=== PATIENT | male | born 1980 | race Two or more races ===

== ENCOUNTER 2021-09-17 16:08 | Outpatient (CLI) | payer OTHER ==
[2021-09-17 17:07] VITALS: BP 123/78
--- NOTE | 2021-09-17 17:07 | SLEEP CARE CONSULTATION ---
Information from patient questionnaire entered by David Cardenas MA. I have reviewed and concur with the information entered by David Cardenas MA. This document represents the service I personally performed and the decisions made by me, Hali Ching ARNP. History of Present Illness Service Date and Time: 09/17/2021 1608 Reason for Visit: New patient (ONSET 06/2011, NO PRIORS,) Chief Complaint: reports: Unrefreshed sleep, Snoring, Excessive daytime sleepine ss, Observed pauses in breathing, Frequent awakenings at night Date of Onset: 6-7 YEARS Usual bedtime: BED 1000 ASLEEP BY 1200 - 0100 Time it takes to fall asleep: 3 HOURS Snores at night: Yes Observed to quit breathing while asleep: Yes Sleeps alone due to snoring: No Number of times waking at night: 3-4 Reasons for waking at night: reports: Snoring, Gasping for air, Other (unknown reasons; arms are "asleep" and hurt; wakes up with cotton mouth) Toss, Turn, or Twitch while sleeping: Yes Recalls having dreams: Yes Usually gets out of bed at: 2739-0020 Feels refreshed in the morning: No Morning headache: Yes (1-2 times a week, resolves after few hours; has bruxism) Sleepy or fatigued during the day: Yes Ever fallen asleep while driving: Yes (drowsy driving; fell asleep once but no accident) Takes day naps: Yes (daily for about 15-45 minutes) Dreams during day naps: No Prior sleep studies: No Additional HPI information: I had the pleasure of seeing KIMBERLEY LOMBARDI today regarding the possibility of him having a sleep disorder. His current complaints are unrefreshed sleep, snoring, excessive daytime sleepiness, observed pauses in breathing and frequent night awakenings. He will lay down about 10 PM but has general anxiety and has ruminating thoughts that keep him awake. He has tried Melatonin at night which did help him go to sleep quicker but not feel more rested in the mornings. He will wake up 3-4 times a night. He tries to avoid looking at watch or clock because this will cause anxiety. He will just go to bathroom or change position and then go back to sleep which takes about 20-30 minutes. - Parasomnia Symptoms Ever been unable to move upon waking from sleep: No Walks in sleep: No Talks in sleep: Yes (per ) Ever acted out dreams in sleep: No Ever felt weak in the knees when startled or emotional: No Bothered by creepy, crawly, restless sensations in legs: Yes (not often; legs are squirmy, got to shake them out; 2-3 times a month night) Problems with memory or concentration: Yes (both) Subjective Initial [place] Sleepiness Scale score: 21 (08/2021) Past Medical History Past Medical History: reports: Anxiety, Asthma, Depression Social History The patient's occupation is a RE. Patient is and lives in [place]. Have you smoked in the past 12 months: No Cigarettes per day (20/pack): 5 (mainly during deployments; quit on [facility]) Quit date: 2015 Alcohol use: Yes Alcohol amount and frequency: 4 X WEEKLY Caffeine use: Yes Caffeine amount and frequency: 3 X DAILY Family History Family history of sleep disordered breathing: Yes Family Hx Sleep Apnea: Mother: Snoring, Sleep apnea - Untreated, Sibling: Snoring, Sleep apnea - Treated, Grandparent: Snoring, Sleep apnea - Untreated Allergies and Home Medications Drug allergies reviewed: Yes (Ibuprofen, facial swelling and hives) Home medication list reviewed: Yes Allergy and home medication list: Singular 10 mg daily Duloxetine 20 mg Advair Diskus 500-50 BID ProAir HFA, prn Hydroxyzine 20 mg, prn Review of Systems Weight gain over past 5 years: 25 pounds Cardiovascular: reports: high blood pressure Respiratory: reports: shortness of breath, wheeze Gastrointestinal: reports: nausea Urinary: reports: impotence Neurological: reports: headaches, head trauma (concussion, lost 1 day of memory) Psychiatric: reports: anxiety, depression Ear/Nose/Throat: reports: nasal congestion, dry mouth/throat, wisdom teeth removed, other (Tinnitus). denies: tonsillectomy Endocrine: reports: sluggishness Musculoskeletal: reports: joint pain, neck pain, back pain Immunologic: reports: allergies to food or environment (seasonal allergies) Physical Exam Vital signs obtained and entered by: Diane CARDENAS CMA AAUT Blood Pressure: 123/78 (RIGHT, PULSE 73, RESP 16) Cuff size: wrist Heart Rate: 77 O2 Saturation: 96 (PAPER) Height: 6 ft Weight: 280 lb (WITH CLOTHES) Body Mass Index: 38.0 BMI Classification: Obese Neck circumference: 18 (INCH) Mouth and throat: normal Soft palate: long Hard palate: normal Uvula: normal Uvula visualization: 100% Mallampati Class I Tongue: enlarged in size with teeth brady on lateral edges Tonsils: 1+ Neck: normal w/o lymphadenopathy or thyromegaly Heart: regular rate and rhythm Lungs: clear bilaterally Impression and Plan 1. Suspected Obstructive Sleep Apnea-Hypopnea Syndrome, as suggested by a history of loud and irregular snoring, observed cessation of breath while asleep, gasping or choking in sleep, morning headache, frequent awakening during the night, unrefreshed sleep, cognitive impairment, and excessive daytime sleepiness. Narrow oropharynx and obesity are common predisposing factors for obstructive sleep apnea-hypopnea syndrome. I recommend proceeding to polysomnography to confirm the diagnosis and to assess severity. If the patient has significant sleep disordered breathing, a manual CPAP titration study will also be performed to find the optimal treatment pressure. I informed the patient of what the sleep studies involve and after some discussion, obtained agreement to proceed. The pathophysiology of obstructive sleep apnea-hypopnea syndrome was discussed with the patient and health risks of cardiovascular and cerebrovascular disease if not treated. Risks of drowsy driving discussed in detail and patient advised to avoid long distance driving and to machine puller at the first sign of drowsiness. Patient agreed to plan. * Schedule polysomnography +- manual CPAP titration study and return in 1-2 week s after the study to discuss results. * Avoid long distance driving or driving when feeling sleepy. * Avoid alcohol, sedative and muscle relaxant around bedtime. * Attempt to lose weight. * Review instructions provided by trained office staff on how to prepare for the sleep study. * Return for follow-up after sleep study completed. Counseling Topics: Weight loss health impact Visit Type: In Office Time Spent with Patient (minutes): 31 Provider Statement: I spent 100% of the Face to Face Visit with the patient with greater than 50% spent counseling the patient and coordination of care.
== END 2021-09-17 16:09 | disposition home or self-care (01) ==
LOC: SC 16:08
PROVIDERS: ATTEND Nurse Practitioner Family
DX: R06.83 Snoring (principal); G47.8 Other sleep disorders; R06.81 Apnea, not elsewhere classified; R51.9 Headache, unspecified; G47.10 Hypersomnia, unspecified; F32.A Depression, unspecified; E66.9 Obesity, unspecified; Z68.30 Body mass index [BMI] 30.0-30.9, adult; Z87.891 Personal history of nicotine dependence
CPT/HCPCS: 99203; 99212

== ENCOUNTER 2021-10-21 19:28 | Outpatient (CLI) | payer OTHER | END 2021-10-21 19:29 | disposition home or self-care (01) | LOC: SC 19:28 | PROVIDERS: ATTEND Nurse Practitioner Family | DX: G47.33 Obstructive sleep apnea (adult) (pediatric) (principal) | CPT/HCPCS: 95810 ==

== ENCOUNTER 2021-11-08 13:28 | Outpatient (CLI) | payer OTHER ==
[2021-11-08 14:00] VITALS: BP 125/73
--- NOTE | 2021-11-08 14:00 | SLEEP CARE CONSULTATION ---
Information from patient questionnaire entered by David Guillen MA. I have reviewed and concur with the information entered by David Guillen MA. This document represents the service I personally performed and the decisions made by , Hali Ching ARNP. History of Present Illness Service Date and Time: 11/08/2021 1328 Initial [place] Sleepiness Scale score: 21 (08/2021) Current [place] Sleepiness Scale score: 20 (10/2021) Additional HPI information: KIMBERLEY LOMBARDI returns for follow up and results of the recently performed polysomnography. I explained the pathophysiology behind obstructive sleep apnea. We then spent quite a bit of time discussing different treatment options. For mild obstructive sleep apnea, surgery and oral appliance are alternatives to nasal CPAP therapy but in moderate or severe cases, nasal CPAP is the most effective and reliable treatment. Because apnea is primarily in supine position, then positional management therapy could be effective. Methods discussed such as positioning with pillows t o prevent supine sleep. I reviewed the impact of weight changes on sleep apnea and strongly recommended losing weight. After some discussion, the patient opted to go with the nasal CPAP therapy. Nasal autoCPAP set at 4-15 cmH20 will be ordered with rationale explained. A manual titration study will be ordered if unable to find optimal pressure with office adjustments. I explained how CPAP machine works and what to expect when using the machine. Using CPAP every night in order to get used to it was emphasized. Patient advised to put CPAP mask on before getting into bed so as not to fall asleep without CPAP. To assist acclimation to CPAP use, it could also be used for a short time during day while reading or watching TV. The patient was instructed to call the CPAP supplier to discuss any mechanical problem that may occur. If the mask given is uncomfortable or is difficult to keep on through the night even with adjustment, contact the CPAP supplier as many will replace with another mask style if notified before 30 days. If snoring or perceives is not getting enough air or too much air from the machine, notify this office. Patient counseled not drink alcohol less than 4 hours before bedtime as it can increase snoring and apnea. Patient was cautioned about risks of drowsy driving until sleepiness symptoms resolve. Patient denies drowsy driving. Sleep Study - Results Type of Sleep Study: Polysomnography (F/U POLY, 10/21/2021 [facility],) Prior sleep studies: No Polysomnography/Home Sleep Study results: IMPRESSION: The quality of the study is good. The patient had normal sleep efficiency. The sleep architecture was abnormal for sleep fragmentation and reduced amount of time spent in REM and slow wave sleep (N3). Respiratory monitoring showed moderate obstructive sleep apnea-hypopnea (AHI = 21.5) associated with frequent arousals, oxyhemoglobin desaturation and moderate hypoxia (yevgeniy oxygen saturation of 78%). Baseline oxygen saturation was normal. The respiratory events occurred more frequently during supine sleep (supine AHI = 29.7; non-supine = 11.52). Snore was moderate in intensity. There was no significant periodic leg movement of sleep. Cardiac rhythm was normal sinus rhythm without significant arrhythmia. No abnormal behavior (parasomnia) observed during the night. Allergies and Home Medications Known drug allergies: Yes (Ibuprofen) Home medication list reviewed: Yes (no changes) Review of Systems Review of systems same as previous: Yes (no changes) Physical Exam Vital signs obtained and entered by: Diane WARD Blood Pressure: 125/73 (RIGHT, PULSE 57, RESP 16, ) Heart Rate: 56 O2 Saturation: 98 (PAPER MASK) Height: 6 ft Weight: 271 lb (CLOTHES) Weight change since last visit: TRYING TO LOOSE WEIGHT, STOPPED DRINKING BEER, Body Mass Index: 36.7 BMI Classification: Obese Impression and Plan 1. Obstructive Sleep Apnea-Hypopnea Syndrome, moderate, with lowest oxygen saturation of 78%. Obviously this is the cause of the patients symptoms of unrefreshed sleep, and excessive daytime sleepiness. Positive pressure therapy could benefit anxiety, depression and asthma. As mentioned above, the patient will be started on nasal autoCPAP therapy with pressure set at 4-15 cmH2O. A manual titration study will be completed if unable to find optimal treatment pressure with office adjustments. Compliance guidelines also reviewed. A copy of compliance guidelines will be given for reference at check out. Because the apnea is more severe supine, I instructed to avoid sleeping supine using pillow positioning until able to start CPAP use. 2. Hypoxemia, moderate, yevgeniy oxygen saturation of 78% with 5.1 minutes spent under 89%. His baseline oxygen saturation was normal with an average oxygen saturation of 93%. * Nasal auto CPAP therapy, pressure at 4-15 cm H2O. * Attempt to lose weight. * Avoid alcohol consumption near bedtime. * Avoid supine sleep until using CPAP. * The patient is again cautioned about driving until sleepiness completely resolves. * Return one month after CPAP obtained. I will assess response to therapy and compliance at that time. Counseling Topics: Weight loss health impact Visit Type: In Office Time Spent with Patient (minutes): 20 Provider Statement: I spent 100% of the Face to Face Visit with the patient with greater than 50% spent counseling the patient and coordination of care.
== END 2021-11-08 13:29 | disposition home or self-care (01) ==
LOC: SC 13:28
PROVIDERS: ATTEND Nurse Practitioner Family
DX: G47.33 Obstructive sleep apnea (adult) (pediatric) (principal); R09.02 Hypoxemia; E66.9 Obesity, unspecified; Z68.36 Body mass index [BMI] 36.0-36.9, adult
CPT/HCPCS: 99212; 99213

== ENCOUNTER 2022-01-14 12:45 | Outpatient (CLI) | payer OTHER ==
--- NOTE | 2022-01-14 13:28 | SLEEP CARE CONSULTATION ---
Information from patient questionnaire entered by David Cardenas MA. I have reviewed and concur with the information entered by David Cardenas MA. This document represents the service I personally performed and the decisions made by , Hali Ching ARNP. History of Present Illness Service Date and Time: 01/14/2022 1245 Previous diagnosis: Moderate, Obstructive Sleep Apnea-Hypopnea Syndrome AHI: 21.5 (in 2021) Reason for follow up: first compliance ([facility]ICOLE[facility]ACE 11/29/2021, ) Equipment type: CPAP Equipment obtained from: Other ([facility]; getting supplies as needed) Mask style: Full face Mask brand: [employer] Backup mask available: No (will keep old mask when replaced) Last cushion change: 1 month + Prior sleep studies: No Type of Sleep Study: Polysomnography (F/U POLY, 10/21/2021 [facility],) HPI additional information: KIMBERLEY LOMBARDI was diagnosed to have moderate, AHI 21.5, obstructive sleep apnea- hypopnea syndrome and returned today for CPAP therapy first compliance follow- up. Sleep Study - Results Type of Sleep Study: Polysomnography (F/U POLY, 10/21/2021 [facility],) Prior sleep studies: No CPAP Compliance Data - Data Reviewed with Patient Average duration of nightly device use: 5 HOURS 44 MINUTES Compliance rate %: 77 (12/14/2021-01/12/2022; days used) Current pressure setting (cmH2O): 4-15 (median 9.5, avg 12.0, max 13.3) Average residual AHI: 1.7 Central apnea: .1 Obstructive apnea: 1.1 Hypopnea: .4 Average large leak: .1 Subjective Missed days of use due to: reports: travel (vacation) Patient concerns: reports: condensation in mask/hose, nasal congestion, dry mouth, nose, throat. denies: aerophagia, mask discomfort, air blowing in eyes, mask leak noise, epistaxis, other Observed to snore while using device: No Current pressure setting perceived as: too low (at first of night) On therapy, patient: reports: sleeping better, awakening more refreshed, being more awake and alert during the day, more rested overall. denies: drowsiness while driving Initial [place] Sleepiness Scale score: 21 (08/2021) Current [place] Sleepiness Scale score: 14 (01/14/2022) Allergies and Home Medications Known drug allergies: Yes (Ibuprofen) Home medication list reviewed: Yes (no changes) Review of Systems Review of systems same as previous: Yes (no changes) Physical Exam Vital signs obtained and entered by: Diane CARDENAS CMA AAMW Blood Pressure: 142/92 (RIGHT) Heart Rate: 49 O2 Saturation: 97 (PAPER MASK) Height: 6 ft Weight: 265 lb (CLOTHES) Body Mass Index: 35.9 BMI Classification: Obese Impression and Plan 1. Obstructive Sleep Apnea-Hypopnea Syndrome, moderate, with good treatment compliance and good apnea control. On CPAP therapy, the patient has better sleep quality and is more rested overall. He has been having some oral and nasal dryness, as well as nasal congestion at night when using the CPAP. Nasal congestion can be reduced with increasing the CPAP humidity as shown on sample device. The heated hose can be adjusted higher if condensation with higher humidity setting. I adjusted his machine to manual for his humidity and heated hose and increased his humidity to 5. He was instructed how to further adjust his machine to reduce dryness and control condensation. The patients pressure will be changed to autoCPAP 10-14 cmH20 to reflect pressure being used. Patient advised to contact me if pressure change is uncomfortable so that it can be adjusted. Goals for apnea control discussed. Patient's apnea severity and rationale for treatment to reduce apnea, improve sleep quality and reduce cardiovascular and cerebrovascular events was reviewed. I also reviewed the benefit of consistent device use of CPAP for depression, anxiety and asthma. 2. Obesity, unspecified. Patient lost some weight until he went on vacation. Currently patients BMI is 35.9. Obesity increases the risk of apnea, CPAP pressure requirements and overall health risks especially cardiovascular and diabetes. Thus patient is advised to lose weight. Weight loss can be done with reducing portion size, reducing refined foods and balancing content with vegetables, fruit and whole grain foods. In addition, patient encouraged to get regular exercise. * Change auto CPAP pressure to 10-14 cmH2O * Increase the ramp starting pressure to 6 cmH2O * Notify me if snoring with mask or feeling that the pressure is too much or too little * Attempt to lose weight * Call this office if any problems using CPAP * Return for follow up in 1-2 months, or sooner if concerns arise Counseling Topics: Spare mask, Weight loss health impact Visit Type: In Office Time Spent with Patient (minutes): 20 Provider Statement: I spent 100% of the Face to Face Visit with the patient with greater than 50% spent counseling the patient and coordination of care.
[2022-01-14 13:29] VITALS: BP 142/92
== END 2022-01-14 12:46 | disposition home or self-care (01) ==
LOC: SC 12:45
PROVIDERS: ATTEND Nurse Practitioner Family
DX: G47.33 Obstructive sleep apnea (adult) (pediatric) (principal); E66.9 Obesity, unspecified; Z68.35 Body mass index [BMI] 35.0-35.9, adult
CPT/HCPCS: 99212; 99213

== ENCOUNTER 2022-05-21 13:35 | Outpatient (CLI) | payer OTHER ==
[2022-05-21 14:14] VITALS: BP 128/80
--- NOTE | 2022-05-21 14:14 | SLEEP CARE CONSULTATION ---
Information from patient questionnaire entered by Cari Galindo. I have reviewed and concur with the information entered by Cari Galindo. This document represents the service I personally performed and the decisions made by me, Hali Ching ARNP. History of Present Illness Service Date and Time: 05/21/2022 1335 Previous diagnosis: Moderate, Obstructive Sleep Apnea-Hypopnea Syndrome AHI: 21.5 Reason for follow up: three month (F/U) Equipment type: CPAP (RESMED) Equipment obtained from: Other ([facility]; getting supplies) Mask style: Full face Mask brand: [employer] ([id number]) Backup mask available: Yes (old mask) Last cushion change: 6 weeks Prior sleep studies: Yes Type of Sleep Study: Polysomnography (F/U POLY, 10/21/2021 [facility],) HPI additional information: KIMBERLEY LOMBARDI was diagnosed to have moderate, AHI 21.5, obstructive sleep apnea- hypopnea syndrome and returned today for CPAP therapy three month follow-up. Sleep Study - Results Type of Sleep Study: Polysomnography (F/U POLY, 10/21/2021 [facility],) Prior sleep studies: No CPAP Compliance Data - Data Reviewed with Patient Average duration of nightly device use: 6 HRS, 45 MIN Compliance rate %: 88 (02/19/2022-05/19/2022) Current pressure setting (cmH2O): 10-11.6 Average residual AHI: 1.5 Central apnea: 0.2 Obstructive apnea: 1 Average large leak: 0.1 lpm Subjective Missed days of use due to: reports: illness Patient concerns: reports: dry mouth, nose, throat, other (pressure a little low at beginning of night). denies: aerophagia, mask discomfort, air blowing in eyes, mask leak noise, condensation in mask/hose, nasal congestion, epistaxis Observed to snore while using device: No Current pressure setting perceived as: comfortable On therapy, patient: reports: sleeping better, more rested overall. denies: drowsiness while driving Initial [place] Sleepiness Scale score: 21 (08/2021) Current [place] Sleepiness Scale score: 15 (05/21/2022) Allergies and Home Medications Known drug allergies: Yes (IBURPROFIN) Drug allergies reviewed: Yes Home medication list reviewed: Yes (no changes) Review of Systems Review of systems same as previous: Yes (no changes) Physical Exam Vital signs obtained and entered by: CARI Fisher MA Blood Pressure: 128/80 (LEFT ARM) Cuff size: regular Heart Rate: 63 O2 Saturation: 97 Height: 6 ft Weight: 277 lb 9.6 oz Body Mass Index: 37.6 BMI Classification: Obese Impression and Plan 1. Obstructive Sleep Apnea-Hypopnea Syndrome, moderate, with good treatment compliance and good apnea control. On CPAP therapy, the patient has better sleep quality and is more rested overall. Patient states he has a little air hunger until the pressure ramps up at the beginning of the night. He also feels like he needs a little more pressure because he is more tired during the day than he was at his last visit. The patients pressure will be changed to autoCPAP 10-12.6 cmH20 for patient comfort and his ramp starting pressure will be increased to 7 cmH2O to reduce air hunger. Patient advised to contact me if pressure change is uncomfortable so that it can be adjusted. Goals for apnea control discussed. Patient's apnea severity and rationale for treatment to reduce apnea, improve sleep quality and reduce cardiovascular and cerebrovascular events was reviewed. I also reviewed the benefit of consistent device use of CPAP for depression/anxiety. 2. Obesity, unspecified. Currently patients BMI is 37.6. Obesity increases the risk of apnea, CPAP pressure requirements and overall health risks especially cardiovascular and diabetes. Thus patient is advised to lose weight. * Change auto CPAP pressure to 10-12.6 cmH2O * Notify me if snoring with mask or feeling that the pressure is too much or too little * Attempt to lose weight * Call this office if any problems using CPAP * Return for follow up in 6 months, or sooner if concerns arise Counseling Topics: Spare mask, Weight loss health impact Visit Type: In Office Time Spent with Patient (minutes): 20 Provider Statement: I spent 100% of the Face to Face Visit with the patient with greater than 50% spent counseling the patient and coordination of care.
== END 2022-05-21 13:36 | disposition home or self-care (01) ==
LOC: SC 13:35
PROVIDERS: ATTEND Nurse Practitioner Family
DX: G47.33 Obstructive sleep apnea (adult) (pediatric) (principal); E66.9 Obesity, unspecified; Z68.37 Body mass index [BMI] 37.0-37.9, adult
CPT/HCPCS: 99212; 99213

== ENCOUNTER 2023-01-08 13:47 | Outpatient (CLI) | payer OTHER ==
--- NOTE | 2023-01-08 14:17 | Sleep Patient Instructions ---
Sleep Center Visit Summary - Patient Visit Information Reason for Visit: 6 month followup for PAP therapy - Patient Instructions Additional Instructions: You were here for follow up of CPAP therapy. You will be continued on CPAP therapy with pressure at 12-13 cmH2O. Please let us know if the pressure change is uncomfortable and we can make further adjustments of the pressure. You should follow up with sleep care in 12 months. You may contact us sooner for any questions or concerns. - Clinic Information Contact: [facility] [address] [place] [id number] [email or web address] T: [phone]
--- NOTE | 2023-01-08 14:25 | SLEEP CARE CONSULTATION ---
Information from patient questionnaire entered by Mine Galindo. I have reviewed and concur with the information entered by Mine Galindo. This document represents the service I personally performed and the decisions made by me, Hali Ching ARNP. History of Present Illness Service Date and Time: 01/08/2023 1347 Previous diagnosis: Moderate, Obstructive Sleep Apnea-Hypopnea Syndrome AHI: 21.5 Reason for follow up: six month (F/U) Equipment type: CPAP (RESMED 11, s/u 11/2021) Equipment obtained from: Other ([facility]; getting supplies) Mask style: Full face Mask brand: ams AG (Jaqueline Full) Backup mask available: Yes (old mask) Prior sleep studies: No Type of Sleep Study: Polysomnography (F/U POLY, 10/21/2021 [facility],) HPI additional information: KIMBERLEY LOMBARDI was diagnosed to have moderate, AHI 21.5, obstructive sleep apnea- hypopnea syndrome and returned today for CPAP therapy six month follow-up. Sleep Study - Results Type of Sleep Study: Polysomnography (F/U POLY, 10/21/2021 [facility],) Prior sleep studies: No CPAP Compliance Data - Data Reviewed with Patient Average duration of nightly device use: 7 hours Compliance rate %: 89 (07/10/22-01/05/23; 168/180 days used) Current pressure setting (cmH2O): 10-12.6 Average residual AHI: 1.3 Central apnea: 0.2 Obstructive apnea: 0.9 Average large leak: 0 L/min Subjective Missed days of use due to: reports: travel (vacation) Patient concerns: reports: dry mouth, nose, throat. denies: aerophagia, mask discomfort, air blowing in eyes, mask leak noise, condensation in mask/hose, nasal congestion, epistaxis Observed to snore while using device: No Current pressure setting perceived as: comfortable On therapy, patient: reports: sleeping better, awakening more refreshed, being more awake and alert during the day, more rested overall. denies: drowsiness while driving Initial [place] Sleepiness Scale score: 21 (08/2021) Current [place] Sleepiness Scale score: 19 (01/08/23) Allergies and Home Medications Known drug allergies: Yes (ibuprofen) Drug allergies reviewed: Yes Home medication list reviewed: Yes (no changes) Allergy and home medication list: Allergies ibuprofen Allergy (Intermediate, Verified 01/07/23 15:00) Review of Systems Review of systems same as previous: Yes (no changes) Physical Exam Vital signs obtained and entered by: MINE Fisher MA Blood Pressure: 128/74 (LEFT ARM) Cuff size: regular Heart Rate: 68 O2 Saturation: 98 Height: 6 ft Weight: 276 lb 6.4 oz Body Mass Index: 37.5 BMI Classification: Obese Impression and Plan 1. Obstructive Sleep Apnea-Hypopnea Syndrome, moderate, with good treatment compliance and good apnea control. On CPAP therapy, the patient has better sleep quality and is more rested overall. He states he is still feeling like he needs a nap about 10 AM and gets tired in late afternoon. He thinks he needs more pressure and states he has been not having bloating. The patients pressure will be changed to autoCPAP 12-13 cmH20 for patient comfort. Patient advised to contact me if pressure change is uncomfortable so that it can be adjusted. Goals for apnea control discussed. Patient's apnea severity and rationale for treatment to reduce apnea, improve sleep quality and reduce cardiovascular and cerebrovascular events was reviewed. I also reviewed the benefit of consistent device use of CPAP for depression/anxiety. 2. Obesity, unspecified. Currently patients BMI is 37.5. Obesity increases the risk of apnea, CPAP pressure requirements and overall health risks especially cardiovascular and diabetes. Thus patient is advised to lose weight. * Change auto CPAP pressure to 12-13 cmH2O * Notify me if snoring with mask or feeling that the pressure is too much or too little * Attempt to lose weight * Call this office if any problems using CPAP * Return for follow up in 1 year, or sooner if concerns arise Counseling Topics: Spare mask, Weight loss health impact Visit Type: In Office Time Spent with Patient (minutes): 22 Provider Statement: I spent 100% of the Face to Face Visit with the patient with greater than 50% spent counseling the patient and coordination of care.
[2023-01-08 14:30] VITALS: BP 128/74
== END 2023-01-08 13:48 | disposition home or self-care (01) ==
LOC: SC 13:47
PROVIDERS: ATTEND Nurse Practitioner Family
DX: G47.33 Obstructive sleep apnea (adult) (pediatric) (principal); E66.9 Obesity, unspecified; Z68.37 Body mass index [BMI] 37.0-37.9, adult
CPT/HCPCS: 99212; 99213